=== PATIENT | male | born 1945 | race Caucasian/White ===

== ENCOUNTER → 2018-06-13 | Outpatient (CLI) | payer MEDICARE ==
--- NOTE | 2018-06-13 11:27 | Diagnostic Imaging Report ---
EXAMINATION: PA and lateral views of the chest. COMPARISON: None CLINICAL HISTORY: DISCUSSION: Lungs are well-inflated. No focal consolidation, pleural effusion, or pneumothorax. Cardiomediastinal contour is notable for mild tortuosity of the thoracic aorta. Normal heart size. No overt pulmonary edema. No acute osseous abnormality. IMPRESSION: No acute cardiopulmonary abnormality. No calcified pleural plaques to suggest asbestos related pleural disease, nor plain film evidence of fibrotic changes to suggest pulmonary asbestosis. Signed by: Dr. Jose Daniel Hagan M.D. on 06/13/2018 11:24 AM
== END ==
LOC: RAD 10:45
PROVIDERS: ATTEND Internal Medicine
DX: Z77.090 Contact with and (suspected) exposure to asbestos (principal)
CPT/HCPCS: 71046

== ENCOUNTER → 2022-06-30 | Outpatient (CLI) | payer MEDICARE | LOC: RAD 11:17 | PROVIDERS: ATTEND Internal Medicine | DX: M16.11 Unilateral primary osteoarthritis, right hip (principal) ==

== ENCOUNTER 2022-08-16 05:29 | Observation (INO) | payer MEDICARE ==
[2022-08-15 08:26] LABS: BASOPHILS # (AUTO) 0.1 (0.0-0.1); BASOPHILS % 0.7 % (0.0-1.0); EOSINOPHILS # (AUTO) 0.2 (0.0-0.4); EOSINOPHILS % 2.7 % (0.0-6.0); HEMATOCRIT 39.8 % (38.2-49.6); HEMOGLOBIN 12.9 g/dL (14.0-18.0); LYMPHOCYTES # (AUTO) 1.5 (1.0-3.2); LYMPHOCYTES % 16.9 % (18.0-39.1); MEAN CORPUSCULAR HEMOGLOBIN 31.6 pg (28-32); MEAN CORPUSCULAR HGB CONC 32.4 g/dL (31-35); MEAN CORPUSCULAR VOLUME 97.5 fL (81-99); MONOCYTES # (AUTO) 0.8 (0.2-0.8); MONOCYTES % 8.5 % (4.4-11.3); NEUTROPHILS # (AUTO) 6.3 (2.1-6.9); NEUTROPHILS % 70.9 % (38.7-80.0); PLATELET COUNT 268 x10e3/uL (140-360); RED BLOOD COUNT 4.08 x10e6/uL (4.3-5.7)
[~2022-08-16] VITALS: Ht 182.9 cm; Wt 97.1 kg
[~2022-08-16 05:29] MED LIST: ASPIRIN EC81 MG PO; ATORVASTATIN CA10 MG PO; AZOR 5-20 MG T1 EACH PO; DOXAZOSIN MESYLA2 MG PO; FINASTERIDE5 MG PO; MELOXICAM7.5 MG PO; METOPROLOL SUCC50 MG PO; MULTI-VITAMIN1 EACH PO; OMEPRAZOLE40 MG PO; ULTRAM 50MG50 MG PO; VITAMIN C1000 MG PO; VITAMIN D3 COM1 EACH PO; ZINC CHELATED50 M2 PO
[2022-08-16] MEDS ORDERED: GABAPENTIN 300 MG CAP ONE (06:22)
[2022-08-16] MEDS ORDERED: DEXAMETHASONE SOD PHOS 10 MG/1 ML VIAL ONE (06:22)
[2022-08-16] MEDS ORDERED: CELECOXIB 200 MG CAP ONE (06:22)
[2022-08-16] MEDS ORDERED: Vancomycin IV 1,000 MG ONE (07:21)
[2022-08-16] MEDS ORDERED: SODIUM CHLORIDE 0.9% 500ML 500 ML ONE (07:21)
[2022-08-16] MEDS ORDERED: TRANEXAMIC ACID 20 ML ONE (07:21)
[2022-08-16] MEDS ORDERED: ROPIVACAINE 246.25 MG, EPINEPHRINE HCL 1:1000 1ML 0.5 MG, CLONIDINE HCL 0.08 MG, KETORO... INJ ONE ×5 (08:00)
[2022-08-16] MEDS ORDERED: SODIUM CHLORIDE 0.9% 1000ML 1,000 ML IV SCH (10:15)
[2022-08-16] MEDS ORDERED: DOCUSATE SODIUM 100 MG CAP PO PRN (10:15)
[2022-08-16] MEDS ORDERED: HYDROCODONE/APAP 7.5MG-325MG 1 EA TAB PO PRN (10:15)
[2022-08-16] MEDS ORDERED: HYDROCODONE/APAP 5MG-325MG TAB PO PRN (10:15)
[2022-08-16] MEDS ORDERED: ACETAMINOPHEN 650 MG SUPP PR PRN (10:15)
[2022-08-16] MEDS ORDERED: ONDANSETRON HCL INJ 2MG/ML 2ML 2 MG/ML VIAL IV PRN (10:15)
[2022-08-16] MEDS ORDERED: DIPHENHYDRAMINE HCL INJ 50 MG/ML VIAL IV PRN (10:15)
[2022-08-16] MEDS ORDERED: ZOLPIDEM TARTRATE 5 MG TAB PO PRN (10:15)
[2022-08-16 12:48] VITALS: BP 99/84
[2022-08-16 12:49] VITALS: BP 99/84
[2022-08-16] MEDS ORDERED: POVIDONE IODINE 0.05% 0.05 % ML PO ONE (13:16)
[2022-08-16] MEDS ORDERED: LIDOCAINE HCL 2% LOCAL INJ 5 ML SDV VIAL INJ ONE (13:16)
[2022-08-16] MEDS ORDERED: PROPOFOL IV EMULSION 10 MG/ML 20 ML VIAL ONE (13:16)
[2022-08-16] MEDS ORDERED: EPHEDRINE SULFATE INJ 50 MG/ML VIAL ONE (13:16)
[2022-08-16] MEDS ORDERED: PHENYLEPHRINE HCL 1% 10 MG/ML VIAL ONE (13:16)
[2022-08-16 13:47] LABS: BASOPHILS % 0.1 % (0.0-1.0); EOSINOPHILS % 0.1 % (0.0-6.0); HEMATOCRIT 39.9 % (38.2-49.6); HEMOGLOBIN 12.9 g/dL (14.0-18.0); LYMPHOCYTES # (AUTO) 0.6 (1.0-3.2); LYMPHOCYTES % 4.3 % (18.0-39.1); MEAN CORPUSCULAR HEMOGLOBIN 31.6 pg (28-32); MEAN CORPUSCULAR HGB CONC 32.3 g/dL (31-35); MEAN CORPUSCULAR VOLUME 97.8 fL (81-99); MONOCYTES # (AUTO) 0.2 (0.2-0.8); MONOCYTES % 1.1 % (4.4-11.3); NEUTROPHILS # (AUTO) 12.7 (2.1-6.9); NEUTROPHILS % 93.6 % (38.7-80.0); PLATELET COUNT 229 x10e3/uL (140-360); RED BLOOD COUNT 4.08 x10e6/uL (4.3-5.7); RED CELL DISTRIBUTION WIDTH 12.7 % (11.7-14.4)
[2022-08-16 15:31] LABS: BAND NEUTROPHILS % (MANUAL) 1 %; LYMPHOCYTES % (MANUAL) 2 % (19-48); METAMYELOCYTES % (MANUAL) 1 % (0-0); MONOCYTES % (MANUAL) 1 % (3.4-9.0); NEUTROPHILS % (MANUAL) 95 % (40-74)
[2022-08-16 15:33] LABS: PLATELET ESTIMATE ADEQUATE; PLATELET MORPHOLOGY COMMENT NORMAL
[2022-08-16 15:46] VITALS: BP 112/69
[2022-08-16] MEDS ORDERED: CELECOXIB 200 MG CAP PO SCH (17:00)
[2022-08-16] MEDS ORDERED: ASPIRIN 325 MG TAB PO SCH (17:00)
[2022-08-17] MEDS ORDERED: ACETAMINOPHEN 1000 MG/100 ML IV PRN (10:15)
== END 2022-08-16 17:54 | disposition home or self-care (01) ==
LOC: OR 05:29 → PACU V 10:59 → MED/SURG 12:25
PROVIDERS: ADMIT Specialist; ATTEND Specialist
DX: M16.11 Unilateral primary osteoarthritis, right hip (principal); Z20.822 Contact with and (suspected) exposure to COVID-19; Z01.818 Encounter for other preprocedural examination; I11.9 Hypertensive heart disease without heart failure; E78.5 Hyperlipidemia, unspecified; E66.3 Overweight; Z68.29 Body mass index [BMI] 29.0-29.9, adult; K21.9 Gastro-esophageal reflux disease without esophagitis
CPT/HCPCS: 0223U; 27130; 36415 ×2; 72170; 85025 ×2; 86850; 86900; 86920; 94799; 97110; 97116 ×2; 97161; 97530; G0378; J0171; J0690; J1100; J1885; J2001; J2370; J2704; J2795; J3370; J7030; J7040